=== PATIENT | male | born 1980 | race African-American/Black ===

== ENCOUNTER 2019-10-19 14:48 | Emergency (ER) | payer MEDICARE ==
[~2019-10-19] VITALS: Ht 185.4 cm; Wt 81.8 kg
[2019-10-19 15:27] VITALS: BP 118/66
[2019-10-19] MEDS ORDERED: LIDOCAINE 1% PF 2 ML VIAL. INJ ONE (15:30)
[2019-10-19] MEDS ORDERED: DIPH,PERTUSS(ACELL),TET VAC/PF 0.5 ML SYRINGE. VAX IM ONE ×2 (15:49→16:00)
--- NOTE | 2019-10-19 16:01 | RAD ---
PROCEDURE: FINGER(S) RIGHT CLINICAL INDICATION / HISTORY: Reason: index finger injury. glass laceration to tip of finger / Spl. Instructions: / History: . TECHNIQUE: Right index finger - 3 Views: PA, oblique, and lateral views were obtained. COMPARISON: None FINDINGS: No fracture, dislocation, or other abnormality is identified. No radiopaque foreign body. There is irregularity to the volar surface of the right index finger compatible with a laceration. Incidental circumscribed calcifications around the shaft of the proximal right first phalanx. IMPRESSION: Right index finger. Soft tissue laceration without associated osseous injury or retained radiopaque foreign body. Electronically signed by: Woody Crenshaw MD (10/19/2019 3:58 PM) [id number]
--- NOTE | 2019-10-19 16:22 | PHYS DOC ---
Past Medical History Past Medical History: No Pertinent History Additional Past Medical Histor: MS Past Surgical History: Knee Replacement Smoking Status: Never Smoker Alcohol Use: Occasionally General Adult EDM: Chief Complaint: LACERATION/AVULSION HPI: HPI: Patient is a 39 year old AA male who presents to the emergency department, company by his , with complaints of a laceration to the volar surface of his right index finger.distal to the DIP. Patient reports that he was lifting a glass table when it broke and cut him. He denies any decreased range of motion, decreased sensation, numbness, or tingling of the affected digit. He is not sure when his last tetanus shot was. He currently rates his pain a 3 out of 10 on the pain scale, he denies any radiation of the pain, he denies any alleviating factors the pain is worse with palpation. Review of Systems: Review of Systems: Constitutional: Denies fever or chills. [] Musculoskeletal: Denies joint pain. [] Integument: See HPI Neurologic: Denies focal weakness or sensory changes. [] Psychiatric: Denies depression or anxiety. [] Heart Score: Risk Factors: Risk Factors: DM, Current or recent (<one month) smoker, HTN, HLP, family history of CAD, obesity. Risk Scores: Score 0 - 3: 2.5% MACE over next 6 weeks - Discharge Home Score 4 - 6: 20.3% MACE over next 6 weeks - Admit for Clinical Observation Score 7 - 10: 72.7% MACE over next 6 weeks - Early Invasive Strategies Current Medications: Current Medications Medications (Trade) Dose Ordered Sig/Vaishnavi Start Time Stop Time Status Last Admin Dose Admin Diphtheria/ Tetanus/Acell Pertussis (ADACEL TDap SYRINGE) 0.5 ml ONCE ONCE 10/19/19 16:00 10/19/19 16:01 DC 10/19/19 15:54 0.5 ML Lidocaine HCl (Xylocaine-Mpf 1% 2ml Vial) 4 ml 1X ONCE 10/19/19 15:30 10/19/19 15:32 DC 10/19/19 15:53 4 ML Allergies: Allergies: Allergies Coded Allergies Type Severity Reaction Last Updated Verified No Known Drug Allergies 10/19/19 No Physical Exam: PE: Constitutional: Well developed, well nourished, no acute distress, non-toxic appearance. [] HENT: Normocephalic, atraumatic, bilateral external ears normal, nose normal. [] Eyes: PERRLA, EOMI, conjunctiva normal, no discharge. [] Neck: Normal range of motion, no stridor. [] Cardiovascular:Heart rate regular rhythm Lungs & Thorax: Respirations even and unlabored, no retractions, no respiratory distress Skin: Warm, dry; 4 cm flap laceration to palmar aspect of right 2nd digit distal to the DIP, no obvious FB, bleeding controlled by direct pressure. Extremities: No cyanosis, ROM intact, no edema. [] Neurologic: Alert and oriented X 3, no focal deficits noted. [] Psychologic: Affect normal, judgement normal, mood normal. [] Current Patient Data: Vital Signs: Vital Signs Date Time Temp Pulse Resp B/P (MAP) Pulse Ox O2 Delivery O2 Flow Rate FiO2 10/19/19 15:27 98.4 70 18 118/66 (83) 98 Room Air 98.4 EKG: EKG: [] Radiology/Procedures: Radiology/Procedures: PROCEDURE: FINGER(S) RIGHT PROCEDURE: FINGER(S) RIGHT CLINICAL INDICATION / HISTORY: Reason: index finger injury. glass laceration to tip of finger / Spl. Instructions: / History: . TECHNIQUE: Right index finger - 3 Views: PA, oblique, and lateral views were obtained. COMPARISON: None FINDINGS: No fracture, dislocation, or other abnormality is identified. No radiopaque foreign body. There is irregularity to the volar surface of the right index finger compatible with a laceration. Incidental circumscribed calcifications around the shaft of the proximal right first phalanx. IMPRESSION: Right index finger. Soft tissue laceration without associated osseous injury or retained radiopaque foreign body.[] Laceration Repair by me: Anesthesia: 1% lidocaine locally Location: Volar surface of left index finger distal to the DIP Tendon/Joint/Nerves: No injury Foreign body: None detected after copious irrigation and exploration with NS and chlorhexidine Technique: 13 simple Interrupted Sutures with 5-0 Ethilon Complexity: No subcutaneous sutures/mucosal repair/edge excision Post Closure Length: 4 cm Patient's bleeding was easily controlled in the department and there is no indication of anemia. No evidence of compartment syndrome, neurologic injury, vascular injury, open joint, tendon laceration, or foreign body. Patient is appropriate for outpatient follow up. Course & Med Decision Making: Course & Med Decision Making Pertinent Labs and Imaging studies reviewed. (See chart for details) [] Camila Disclaimer: Camila Disclaimer: This electronic medical record was generated, in whole or in part, using a voice recognition dictation system. Departure Departure Impression: Primary Impression: Laceration of right index finger w/o foreign body w/o damage to nail Qualified Codes: S61.210A - Laceration without foreign body of right index finger without damage to nail, initial encounter Additional Impression: Need for Tdap vaccination Disposition: HOME, SELF-CARE Condition: STABLE Referrals: UNKNOWN PCP NAME (PCP) Patient Instructions: Laceration Care, Adult, [id number], VIS, Tetanus, Diphtheria (Td); Tetanus, Diphtheria, Pertussis (Tdap) - CDC Additional Instructions: Keep the area clean and dry. You may take Tylenol or ibuprofen as needed for pain. Keep the dressing that was placed today on for 24 hours then change the dressing twice a day and apply antibiotic ointment to the area. Wear the finger splint that was applied until the sutures have been removed. Follow-up with your primary care doctor, or return to the emergency room in 14 days to have the sutures removed, sooner if you develop signs of infection including: redness, warmth, drainage, or a fever. Scripts Cephalexin (CEPHALEXIN) 500 Mg Capsule 1 CAP PO TID for 7 Days, #21 CAP 0 Refills Prov: MICHEL THOMAS APRN 10/19/19 Justicifation of Admission Dx: Justifications for Admission: Justification of Admission Dx: N/A MICHEL THOMAS APRN Oct 19, 2019 16:22
[2019-10-19] MEDS ORDERED: CEPH500C PO (17:55)
[2019-10-19] MEDS ORDERED: NEOMY/BACITR/POLYMYXIN OINT PACKET. TP ONE (18:00)
== END 2019-10-19 18:04 | disposition home or self-care (01) ==
LOC: ER 14:48
DX: S61.210A Laceration without foreign body of right index finger without damage to nail, initial encounter (principal); Z98.890 Other specified postprocedural states; W25.XXXA Contact with sharp glass, initial encounter; Y93.89 Activity, other specified; Y92.89 Other specified places as the place of occurrence of the external cause; Y99.8 Other external cause status
CPT/HCPCS: 12002; 73140; 90471; 90715; 99283; J3490

== ENCOUNTER 2019-11-02 16:45 | Emergency (ER) | payer MEDICARE ==
[~2019-11-02] VITALS: Ht 185.4 cm; Wt 84.0 kg
[~2019-11-02 16:45] MED LIST: CEPH500C PO
[2019-11-02 16:55] VITALS: BP 139/73
--- NOTE | 2019-11-02 17:24 | PHYS DOC ---
Past Medical History Past Medical History: No Pertinent History Additional Past Medical Histor: MS Past Surgical History: Knee Replacement Smoking Status: Never Smoker Alcohol Use: Occasionally General Adult EDM: Chief Complaint: SUTURE/STAPLE REMOVAL HPI: HPI: Patient is a 39 year old male who presents for suture removal from the right index finger, sutures have been in for 2 weeks. Review of Systems: Review of Systems: Constitutional: Denies fever or chills. [] Musculoskeletal: Denies back pain or joint pain. [] Integument: Visit for suture removal Neurologic: Denies headache, focal weakness or sensory changes. [] Psychiatric: Denies depression or anxiety. [] Heart Score: Risk Factors: Risk Factors: DM, Current or recent (<one month) smoker, HTN, HLP, family his tory of CAD, obesity. Risk Scores: Score 0 - 3: 2.5% MACE over next 6 weeks - Discharge Home Score 4 - 6: 20.3% MACE over next 6 weeks - Admit for Clinical Observation Score 7 - 10: 72.7% MACE over next 6 weeks - Early Invasive Strategies Allergies: Allergies: Allergies Coded Allergies Type Severity Reaction Last Updated Verified No Known Drug Allergies 10/19/19 No Physical Exam: PE: Constitutional: Well developed, well nourished, no acute distress, non-toxic appearance. [] Skin: Warm, dry, palmar aspect of the right index finger with a well approximated laceration site. Roughly 12 sutures were removed from the region by me. Back: No tenderness, no CVA tenderness. [] Extremities: No tenderness, no cyanosis, no clubbing, ROM intact, no edema. [] Neurologic: Alert and oriented X 3, normal motor function, normal sensory function, no focal deficits noted. [] Psychologic: Affect normal, judgement normal, mood normal. [] EKG: EKG: [] Radiology/Procedures: Radiology/Procedures: [] Course & Med Decision Making: Course & Med Decision Making Pertinent Labs and Imaging studies reviewed. (See chart for details) Patient is in the ED for suture removal from the right index finger which was done by me. Discharge to home. Return precautions provided. Camila Disclaimer: Camila Disclaimer: This electronic medical record was generated, in whole or in part, using a voice recognition dictation system. Departure Departure Impression: Primary Impression: Visit for suture removal Disposition: 01 HOME, SELF-CARE Condition: STABLE Referrals: UNKNOWN PCP NAME (PCP) follow up with your doctor as needed Patient Instructions: Suture Removal-Brief Additional Instructions: We removed stitches from your right index finger. Keep the area clean and dry. Follow-up with your doctor as needed Justicifation of Admission Dx: Justifications for Admission: Justification of Admission Dx: N/A DARIO DELGADO APRN Nov 02, 2019 17:24
== END 2019-11-02 17:40 | disposition home or self-care (01) ==
LOC: ER 16:45
DX: S61.210D Laceration without foreign body of right index finger without damage to nail, subsequent encounter (principal); Y28.8XXD Contact with other sharp object, undetermined intent, subsequent encounter
CPT/HCPCS: 99281